=== PATIENT | female | born 1985 | race Native Hawaiian/Other Pacific Islander ===

== ENCOUNTER 2016-11-15 04:09 | Emergency (ER) | payer OTHER ==
[~2016-11-15] VITALS: Ht 170.2 cm; Wt 111.1 kg
[~2016-11-15 04:09] MED LIST: *LORTAB 7.5/5001 TAB PO; ALAVERT10 M2 PO; ASPIR-8181 MG PO; CYCL10TA35 PO; DIGOX250 MCG PO; FERR325T5 PO; LISI5TAB10 PO; LOPRESSOR100 MG PO; LOVASTATIN10 MG OR; LYRICA20 MG/ML PO; MEDROXYPR AC10 MG OR; METF500T PO; PANT40TA PO; PRADAXA150 MG OR; ROBAXIN500 MG PO; TAPAZOLE10 MG OR
[2016-11-15 05:18] LABS: PLATELET COUNT 354 K/uL (152-353)
[2016-11-15 05:42] LABS: POTASSIUM 3.7 mmol/L (3.6-5.2); SODIUM 130 mmol/L (136-145)
[2016-11-15] MEDS ORDERED: ONDA4TAB3 PO (07:18)
[2016-11-15] MEDS ORDERED: VERA120T22 PO (07:18)
[2016-11-15 07:19] VITALS: BP 135/88; TEMP 98.4
== END 2016-11-15 07:38 | disposition home or self-care (01) ==
LOC: ED 04:09
DX: I48.91 Unspecified atrial fibrillation (principal); E11.65 Type 2 diabetes mellitus with hyperglycemia
CPT/HCPCS: 36415; 80053; 82550; 83036; 84443; 84484; 85027; 93005; 96361; 96374; 96375; 96376; 99285; J1815; J2405; J3490